=== PATIENT | male | born 1990 | race Caucasian/White ===

== ENCOUNTER 2019-04-19 14:18 | Emergency (ER) | payer BC ==
[~2019-04-19] VITALS: Ht 180.3 cm; Wt 153.0 kg
[2019-04-19] MEDS ORDERED: ONDANSETRON 2MG/ML, 2ML IVPush ONE (15:00)
[2019-04-19] MEDS ORDERED: GLUCAGON 1 MG IVPush ONE (15:00)
[2019-04-19] MEDS ORDERED: GLUCAGON 1 MG ONE (15:07)
[2019-04-19] MEDS ORDERED: ONDANSETRON 2MG/ML, 2ML ONE ×2 (15:07→15:12)
--- NOTE | 2019-04-19 15:14 | NUR ---
pt medicated per order. pt in bed nibp and pulse ox monitoring in place. pt encouraged to report any changes and call light in reach.
--- NOTE | 2019-04-19 16:00 | NUR ---
PT IN BED SIPPING SPRITE. PT DOESN'T THINK THE SPRITE IS WORKING. PT INSTRUCTED TO STAND AND DRINK MORE OF THE SPRITE. AT THIS TIME THE OBSTRUCTION FELL PER PT. PT DRANK MORE SPRITE TO CONFIRM AND STATES IT IS CLEAR.
[2019-04-19 16:33] VITALS: BP 144/89
== END 2019-04-19 16:40 | disposition home or self-care (01) ==
LOC: ED 15:26
DX: T18.128A Food in esophagus causing other injury, initial encounter (principal); K21.9 Gastro-esophageal reflux disease without esophagitis; X58.XXXA Exposure to other specified factors, initial encounter; Y93.89 Activity, other specified; Y92.89 Other specified places as the place of occurrence of the external cause; Y99.8 Other external cause status
CPT/HCPCS: 96374; 96375; 99283; J1610; J2405